=== PATIENT | female | born 1960 | race Caucasian/White ===

== ENCOUNTER → 2021-02-08 10:40 | Outpatient (BNVA) | payer SELFPAY | PROVIDERS: Visit Provider Nurse Practitioner Family | DX: Z20.822 Contact with and (suspected) exposure to COVID-19 (principal); J06.9 Acute upper respiratory infection, unspecified | CPT/HCPCS: 87635 ==

== ENCOUNTER 2021-02-10 10:29 | Outpatient (CLI) | payer SELFPAY ==
[2021-02-10 11:41] VITALS: BP 133/79; PULSE 81; RESP 18; TEMP 36.8; O2SAT 94
[2021-02-10 12:39] VITALS: BP 144/77; PULSE 82; RESP 16; TEMP 36.7; O2SAT 98
== END 2021-02-10 13:06 | disposition home or self-care (01) ==
PROVIDERS: Visit Provider Nurse Practitioner Family
DX: U07.1 COVID-19 (principal)
CPT/HCPCS: 96365

== ENCOUNTER 2021-02-12 10:47 | Emergency (ER) | payer SELFPAY ==
[2021-02-12 11:19] VITALS: BP 164/103; PULSE 89; RESP 18; TEMP 36.6; O2SAT 97; BMI 30.2
[2021-02-12 11:25] VITALS: BP 164/103; PULSE 89; RESP 18; O2SAT 98
--- NOTE | 2021-02-12 11:30 | XRR_ITS ---
PROCEDURE INFORMATION: Exam: XR Chest Exam date and time: 02/12/2021 11:30 AM Age: 60 years old Clinical indication: Shortness of breath TECHNIQUE: Imaging protocol: XR of the chest. Views: 1 view. COMPARISON: No relevant prior studies available. FINDINGS: Lungs: There is scarring and/or atelectasis at the right lung base. Pleural spaces: Unremarkable. No pleural effusion. No pneumothorax. Heart/Mediastinum: Cardiomegaly. Bones/joints: Unremarkable. XR/XR chest 1V portable [id number] IMPRESSION: Cardiomegaly.
--- NOTE | 2021-02-12 11:32 | ECG_ITS ---
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 Measurements Intervals [place] Rate: 75 P: 51 VT: 155 QRS: 16 QRSD: 90 T: 38 QT: 365 QTc: 409 Interpretive Statements SINUS RHYTHM No previous ECG available for comparison Electronically Signed On 02-13-2021 17:30:24 CDT by Poncho Wall M.D. [id number]
--- NOTE | 2021-02-12 11:34 | ED_ITS ---
HPI - COVID General: Chief Complaint: COVID symptoms Stated Complaint: COVID +/WORSENING SOB Time Seen by Provider: 02/12/21 10:50 Triage information: Has fever, cough or shortness of breath . Exposure to COVID + person last 14 days History of Present Illness: HPI Narrative: Ms. Rashid is a 60-year-old lady with a significant past medical history of known Covid positive on 02/08/21 with symptom onset of 02/04/2021 status post monoclonal antibody therapy who presents to the emergency department with a chief complaint of continued generalized illness. Symptom onset was gradual and started with back pain and decreased urine output. The patient had generalized malaise. Over the past few days she has had subjective fevers and chills and occasional nonproductive cough with shortness of breath. The shortness of breath is not positional and not associated with exertion. There is no associated chest pain. The patient rates the intensity of their symptoms as moderate to severe and describe the character as aching for pain. Back pain is midthoracic without associated trauma. Overall the course of symptoms has been persistent. The patient not had similar episodes in the past. The patient has tried Tylenol and ibuprofen at home which has provided minimal transient relief. There are no other specific exacerbating or alleviating factors reported. COVID Results: 2 Nasal/Oral Coronavirus 2019 PCR Detected H 02/08/21 10:40 02/08/21 Review of Systems Narrative: CONSTITUTIONAL: Subjective fevers and chills, malaise as noted in HPI EYES - denies pain, denies loss of vision EARS - denies ear issues. NOSE - denies congestion or rhinorrhea. CARDIOVASCULAR - denies chest pain and palpitations RESPIRATORY -mild shortness of breath and nonproductive cough as noted in HPI GASTROINTESTINAL - denies abdominal pain, no nausea vomiting, no changes in bowel habits GENITOURINARY - decrease urine output, urgency without output at times. MUSCULOSKELETAL- back pain as noted in HPI SKIN - denies rashes or new changed skin lesions NEUROLOGIC - denies focal weakness or sensory changes HEMATOLOGIC/LYMPHATIC - denies easy bruising or lymphadenopathy. PFS ED PFSH: Surgical History H/O: hysterectomy Family History Denies family history of Clotting disorder Bleeding disorder Family history of premature coronary artery disease Social History Smoking and tobacco status: current every day smoker Physical Exam Narrative: EXAM NARRATIVE: GENERAL/CONSTITUTIONAL - mildly ill appearing. No acute distress. Eyes - PERRL, no conjunctival injection ENMT - Atraumatic external nose and ears. Moist mucous membranes NECK - supple. trachea midline CARDIOVASCULAR - regular rate and rhythm. RESPIRATORY - mildly coarse breath sounds at the bases. No retractions or acce ssory muscle use. ABDOMEN/GI - Nontender/Nondistended. No tenderness to percussion or evidence of peritonitis. No CVA tenderness MSK - Extremities without obvious deformity or tenderness to palpation . Back pain not reproducible on physical exam. SKIN - Warm, Dry NEURO - alert and appropriately oriented. strength and sensation intact. Moves all extremities equally. PSYCH - Appropriate mood and affect Course ED course: - Patient was seen and evaluated by me at bedside - Patient placed on cardiac monitors, IV access obtained - Initial evaluation notable for mildly ill appearance, no acute distress. There are coarse breath sounds throughout. Patient is not requiring oxygen. - Labs and imaging obtained and reviewed -Symptomatic treatments ordered - Labs notable for no leukocytosis, normal lactate, normal procalcitonin. No evidence of renal dysfunction. There is evidence of urinary tract infection. - Imaging notable for no lobar consolidation - Upon serial reexamination after treatment the patient was improved with symptomatic care - Based on patient history, evaluation, labs, and imaging as interpreted the most likely cause of the patient's condition is multifactorial including COVID- 19, dehydration, and urinary tract infection - The results of ED evaluation were discussed with the patient including prescriptions and/or symptomatic cares including appropriate and responsible use, followup plan, and return precautions. The patient verbalized understanding and felt safe for discharge. - Patient discharged in satisfactory condition. Vital Signs: Vital signs: Vital Signs Temperature 97.9 F 02/12/21 11:19 Pulse Rate 80 02/12/21 13:11 Respiratory Rate 18 02/12/21 13:11 Blood Pressure 131/89 02/12/21 13:11 Pulse Oximetry 98 02/12/21 13:11 MDM - COVID Medical Records: Attestation: I reviewed the patient's medical records. Lab Data: Attestation: I reviewed the patient's lab results. Labs: Lab Results 02/12/21 02/12/21 02/12/21 Range/Units 12:30 12:30 12:30 WBC 4.9 (4.0-10.0) 10^3/ uL RBC 5.33 H (4.1-5.3) 10^6/u L Hgb 16.0 H (11.5-15.3) g/dL Hct 48.0 H (37.0-47.0) % MCV 90.1 (81-99) fL MCH 30.0 (28.0-34.0) pg MCHC 33.3 (30.0-36.0) g/dL RDW 12.9 (12.1-15.1) % Plt Count 211 (130-400) 10^3/c mm MPV 10.9 H (7.4-10.4) fL Neut % (Auto) 62.0 % Lymph % (Auto) 27.7 % [place] % (Auto) 8.7 % Eos % (Auto) 0.6 % Baso % (Auto) 0.4 % Neut # (Auto) 3.06 (1.8-7.7) 10^3/u L Lymph # (Auto) 1.4 (0.8-4.8) 10^3/u L [place] # (Auto) 0.4 (0.2-0.9) 10^3/u L Eos # (Auto) 0.0 (0.0-0.8) 10^3/u L Baso # (Auto) 0.0 (0.0-0.1) 10^3/u L Nucleated RBC % (a uto) 0 % Nucleated RBCs # 0.0 /100WBC Sodium 139 (136-145) mmol/L Potassium 3.8 (3.5-5.1) mmol/L Chloride 104 (98-107) mmol/L Carbon Dioxide 21 L (22-29) mmol/L Anion Gap 17.8 (5-19) BUN 7 L (8-23) mg/dL Creatinine 0.4 L (0.5-0.9) mg/dL GFR Calculation 161.7 H (90-130) mL/min Glucose 82 (65-115) mg/dL Calculated Osmolal ity 285 (285-295) mOsm/k g Calcium 8.7 (8.5-10.5) mg/dL Troponin T Baselin e 6 (0-10) ng/L Lipase 26 (13-60) U/L Procalcitonin 0.02 (0-0.5) ng/mL Urine Color (Yellow) Urine Appearance (CLEAR) Urine pH (5-7) Ur Specific Gravit y (1.005-1.030) Urine Protein (Negative) Urine Glucose (UA) (Normal) Urine Ketones (Negative) Urine Blood (Negative) Urine Nitrate (Negative) Urine Bilirubin (Negative) Urine Urobilinogen (Negative) mg/dL Ur Leukocyte Candi ase (Negative) Urine RBC (0-2) /hpf Urine WBC (0-5) /hpf Ur Squamous Epith Cells (0-5) /hpf Amorphous Sediment Urine Bacteria (NONE) /hpf 02/12/21 Range/Units 13:15 WBC (4.0-10.0) 10^3/ uL RBC (4.1-5.3) 10^6/u L Hgb (11.5-15.3) g/dL Hct (37.0-47.0) % MCV (81-99) fL MCH (28.0-34.0) pg MCHC (30.0-36.0) g/dL RDW (12.1-15.1) % Plt Count (130-400) 10^3/c mm MPV (7.4-10.4) fL Neut % (Auto) % Lymph % (Auto) % [place] % (Auto) % Eos % (Auto) % Baso % (Auto) % Neut # (Auto) (1.8-7.7) 10^3/u L Lymph # (Auto) (0.8-4.8) 10^3/u L [place] # (Auto) (0.2-0.9) 10^3/u L Eos # (Auto) (0.0-0.8) 10^3/u L Baso # (Auto) (0.0-0.1) 10^3/u L Nucleated RBC % (a uto) % Nucleated RBCs # /100WBC Sodium (136-145) mmol/L Potassium (3.5-5.1) mmol/L Chloride (98-107) mmol/L Carbon Dioxide (22-29) mmol/L Anion Gap (5-19) BUN (8-23) mg/dL Creatinine (0.5-0.9) mg/dL GFR Calculation (90-130) mL/min Glucose (65-115) mg/dL Calculated Osmolal ity (285-295) mOsm/k g Calcium (8.5-10.5) mg/dL Troponin T Baselin e (0-10) ng/L Lipase (13-60) U/L Procalcitonin (0-0.5) ng/mL Urine Color Dark yellow (Yellow) Urine Appearance Hazy A (CLEAR) Urine pH 5 (5-7) Ur Specific Gravit y 1.010 (1.005-1.030) Urine Protein Neg (Negative) Urine Glucose (UA) Norm (Normal) Urine Ketones 1+ H (Negative) Urine Blood 2+ H (Negative) Urine Nitrate Negative (Negative) Urine Bilirubin 1+ H (Negative) Urine Urobilinogen 1 H (Negative) mg/dL Ur Leukocyte Candi ase 2+ H (Negative) Urine RBC 5-10 H (0-2) /hpf Urine WBC >100 H (0-5) /hpf Ur Squamous Epith Cells 0-4 H (0-5) /hpf Amorphous Sediment Not Reportable Urine Bacteria 2+ H (NONE) /hpf Imaging Data: CXR: Attestation: I personally reviewed and interpreted this imaging study as follows: My impression: No lobar consolidation Radiologist's impression: Cardiomegaly EKG Data: EKG 1: Attestation: I personally reviewed and interpreted this EKG as follows: EKG interpretation date: 02/12/21 EKG interpretation time: 12:46 Prior EKG tracings: not available for review Interpretation: Twelve-lead EKG shows a regular sinus rhythm at a rate of 75. ND interval 155, QRS duration 90, QTc 409. Normal axis. Interpretation: Sinus rhythm COVID Results: Nasal/Oral Coronavirus 2019 PCR Detected H 02/08/21 10:40 02/08/21 Discharge Plan Discharge Patient Disposition: Home Clinical Impression: COVID-19, UTI (urinary tract infection), Dehydration, Hematuria, Back pain Condition: Stable Prescriptions: New cephalexin 500 mg capsule 500 mg PO Q6H 10 Days Qty: 40 RF: 0 Discharge Orders: Discharge ED (Routine); Ordered 02/12/21 Ordered By: Bennie Mak Discharge Diet: Usual diet Discharge Activity: Resume usual activity Patient Instructions: Hematuria - Female, Viral Pneumonia (ED), Urinary Tract Infection in Women (ED), Back Pain (ED), Opioid Safety Activity Restrictions/Additional Instructions: Thank you for visiting the emergency department. You were seen and evaluated for continued COVID-19 symptoms as well as back pain with urinary symptoms. You were found to have a urinary tract infection which will be treated with antibiotics. Please follow-up with your primary care provider. Your chest x-ray did show cardiomegaly. Which may be due to chronic issues such as hypertension and requires further evaluation by your primary care provider. Please return to the emergency department for any symptoms that you are concerned about and feel needs emergency department evaluation. 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
[2021-02-12] MEDS: sodium chloride 0.9% 500 ML IV ×2 (11:47→13:19)
[2021-02-12] MEDS: acetaminophen 325 mg Tablet 1000 MG PO (11:48)
[2021-02-12 12:50] LABS: Basophils % 0.4 %; Eosinophils % 0.6 %; Lymphocytes # 1.4 10^3/uL (0.8-4.8); Lymphocytes % 27.7 %; Mean Corpuscular HGB Conc 33.3 g/dL (30.0-36.0); Mean Corpuscular Volume 90.1 fL (81-99); Mean Platelet Volume 10.9 fL (7.4-10.4); Monocytes # 0.4 10^3/uL (0.2-0.9); Monocytes % 8.7 %; Neutrophils # 3.06 10^3/uL (1.8-7.7); Nucleated Red Blood Cells % 0 %; Platelet Count 211 10^3/cmm (130-400); Red Blood Count 5.33 10^6/uL (4.1-5.3); Red Cell Distribution Width 12.9 % (12.1-15.1); White Blood Count 4.9 10^3/uL (4.0-10.0)
[2021-02-12 13:11] VITALS: BP 131/89; PULSE 80; RESP 18; O2SAT 98
[2021-02-12 13:17] LABS: Troponin(5th) Baseline 6 ng/L (0-10)
[2021-02-12 13:19] LABS: Anion Gap 17.8 (5-19); Blood Urea Nitrogen 7 mg/dL (8-23); Calcium 8.7 mg/dL (8.5-10.5); Carbon Dioxide 21 mmol/L (22-29); Chloride 104 mmol/L (98-107); Glomerular Filtration Rate 161.7 mL/min (90-130); Glucose 82 mg/dL (65-115); Lipase 26 U/L (13-60); Osmolality Calculated 285 mOsm/kg (285-295); Potassium 3.8 mmol/L (3.5-5.1); Sodium 139 mmol/L (136-145)
[2021-02-12 13:27] LABS: Procalcitonin 0.02 ng/mL (0-0.5)
[2021-02-12 13:58] LABS: Add Urine Microscopic? YES; Bilirubin Urine 1+ (Negative); Blood Urine 2+ (Negative); Glucose Urine UA Norm (Normal); Ketones Urine 1+ (Negative); Leukocyte Esterase Urine 2+ (Negative); Nitrate Urine Negative (Negative); Protein Urine Neg (Negative); Urine Appearance Hazy (CLEAR); Urine Color Dark Yellow (Yellow); Urobilinogen Urine 1 mg/dL (Negative); pH Urine 5 (5-7)
[2021-02-12 13:59] LABS: Add Urine Culture? Yes; Bacteria Urine 2+ /hpf; Squamous Epithelial Cell Urine 0-4 /hpf (0-5); WBC Urine >100 /hpf (0-5)
== END 2021-02-12 14:59 | disposition home or self-care (01) ==
PROVIDERS: Emergency Provider Emergency Medicine
DX: U07.1 COVID-19 (principal); N39.0 Urinary tract infection, site not specified; R31.9 Hematuria, unspecified; E86.0 Dehydration; M54.9 Dorsalgia, unspecified; F17.210 Nicotine dependence, cigarettes, uncomplicated
CPT/HCPCS: 71045; 80048; 81001; 83690; 84145; 84484; 85025; 87086; 93005; 96360; 96361; 99284; J7040

== ENCOUNTER 2021-05-23 14:33 | Emergency (ER) | payer SELFPAY ==
--- NOTE | 2021-05-23 14:40 | XR_ITS ---
WS: [id number] Exam: XR chest 1V portable [id number] Date/Time of Exam: 05/23/2021 2:40 PM Reason For Exam: chest pain Comparison 02/12/2021. Findings: The lungs are clear and fully expanded. Costophrenic angles are sharp. No infiltrates. Bronchovascula r relief appears normal. Cardiac silhouette is unremarkable. Bony elements are intact. XR/XR chest 1V portable [id number] IMPRESSION: Unremarkable chest radiograph.
--- NOTE | 2021-05-23 14:40 | ECG_ITS ---
[facility] Test Date: 2021-05-23 Pat Name: Marylou Rashid Department: Room: Gender: Female Club Former: : 1960 Requested By: Irma Romano Order Number: [id number] Jessie MD: Milli Salinas M.D. Measurements Intervals [place] Rate: 102 P: 63 ND: 157 QRS: 21 QRSD: 85 T: 64 QT: 307 QTc: 400 Interpretive Statements SINUS TACHYCARDIA ANTERIOR MYOCARDIAL INFARCTION , PROBABLY OLD [40+ ms Q WAVE AND/OR ST/T ABNORMALITY IN V3/V4] POSSIBLE INFERIOR MYOCARDIAL INFARCTION , PROBABLY OLD [30 ms Q WAVE IN II/aVF] INTERPRETATION BASED ON A DEFAULT AGE OF 40 YEARS Compared to ECG 02/12/2021 12:46:20 Myocardial infarct finding now present Sinus rhythm no longer present Electronically Signed On 05-23-2021 21:55:57 CONSTRUCTION DIRECTOR by Milli Salinas M.D. [id number] f
[2021-05-23 14:51] VITALS: BP 137/84; PULSE 99; RESP 18; TEMP 36.9; O2SAT 95; BMI 30.2
[2021-05-23 15:12] LABS: Basophils % 0.4 %; Eosinophils % 0.9 %; Hematocrit 44.9 % (37.0-47.0); Hemoglobin 15.4 g/dL (11.5-15.3); Lymphocytes # 0.9 10^3/uL (0.8-4.8); Lymphocytes % 19.1 %; Mean Corpuscular HGB Conc 34.3 g/dL (30.0-36.0); Mean Corpuscular Hemoglobin 30.6 pg (28.0-34.0); Mean Corpuscular Volume 89.3 fl (81-99); Monocytes # 0.4 10^3/uL (0.2-0.9); Monocytes % 8.3 %; Neutrophils # 3.25 10^3/uL (1.8-7.7); Neutrophils % 70.6 %; Nucleated Red Blood Cells % 0 %; Platelet Count 218 10^3/cmm (130-400); Red Blood Count 5.03 10^6/uL (4.1-5.3); Red Cell Distribution Width 13.4 % (12.1-15.1); White Blood Count 4.6 10^3/uL (4.0-10.0)
[2021-05-23 15:33] LABS: Troponin(5th) Baseline 6 ng/L (0-10)
[2021-05-23 15:39] LABS: Alanine Aminotransferase 14 U/L (0-33); Albumin Level 4.1 g/dL (3.5-5.2); Alkaline Phosphatase 119 IU/L (35-105); Anion Gap 18.9 (5-19); Aspartate Amino Transferase 14 U/L (0-32); Blood Urea Nitrogen 11 mg/dL (8-23); Calcium 9.1 mg/dL (8.5-10.5); Carbon Dioxide 18 mmol/L (22-29); Chloride 101 mmol/L (98-107); Globulin 2.6 g/dL (1.3-4.6); Glomerular Filtration Rate 161.7 mL/min (90-130); Glucose 94 mg/dL (65-115); Osmolality Calculated 277 mOsm/kg (285-295); Potassium 3.9 mmol/L (3.5-5.1); Sodium 134 mmol/L (136-145); Total Bilirubin 0.2 mg/dL (0.15-1.2); Total Protein 6.7 g/dL (6.6-8.7)
[2021-05-23 17:35] LABS: Troponin 5 2HR 6.56 ng/L (0-10); Troponin 5 2HR Delta 0.56 ABS# (0-10)
--- NOTE | 2021-07-06 14:11 | DCPLANNER ---
Patient had a follow up appointment scheduled with [facility] - patient did attend appointment.
== END 2021-05-23 17:26 | disposition left against medical advice (07) ==
PROVIDERS: Emergency Provider Physician Assistant
DX: Z53.21 Procedure and treatment not carried out due to patient leaving prior to being seen by health care provider (principal)
CPT/HCPCS: 71045; 80053; 84484; 85025; 93005

== ENCOUNTER 2021-05-24 14:55 | Emergency (ER) | payer SELFPAY ==
[2021-05-24 15:02] VITALS: BP 147/75; PULSE 90; RESP 16; TEMP 36.8; O2SAT 97; BMI 33.1
--- NOTE | 2021-05-24 15:05 | ECG_ITS ---
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 Measurements Intervals [place] Rate: 91 P: 62 DC: 184 QRS: 37 QRSD: 63 T: 62 QT: 311 QTc: 383 Interpretive Statements SINUS RHYTHM POSSIBLE LEFT ATRIAL ENLARGEMENT [-0.1mV P-WAVE IN V1/V2] LOW QRS VOLTAGE IN PRECORDIAL LEADS [QRS DEFLECTION < 1.0 mV IN CHEST LEADS] POSSIBLE ANTERIOR MYOCARDIAL INFARCTION , OF INDETERMINATE AGE [30 ms Q WAVE IN V3/V4, OR R < 0.2 mV IN V4] ST ELEVATION, CONSIDER INFERIOR INJURY [MARKED ST ELEVATION W/O NORMALLY INFLECTED T-WAVE IN II/aVF] ACUTE [place] Compared to ECG 05/23/2021 14:42:51 Low QRS voltage now present.ST (T wave) deviation now present.Sinus tachycardia no longer present Myocardial infarct finding still present Electronically Signed On 05-24-2021 22:45:08 SHARE DAIRY FARMER by Milli Salinas M.D. [id number] f
--- NOTE | 2021-05-24 15:05 | XR_ITS ---
WS: [id number] Exam: XR chest 1V portable [id number] Date/Time of Exam: 05/24/2021 3:38 PM Reason For Exam: chest pain Comparison 05/23/2021 Findings: The lungs are clear and fully expanded. Costophrenic angles are sharp. No infiltrates. Bronchovascula r relief appears normal. Cardiac silhouette is unremarkable. Bony elements are intact. XR/XR chest 1V portable [id number] IMPRESSION: Unremarkable chest radiograph.
--- NOTE | 2021-05-24 16:04 | ED_ITS ---
HPI - Chest Pain General: Chief Complaint: Chest Pain Stated Complaint: SENT OF BY DR ANNA FOR CP LAST NIGHT Time Seen by Provider: 05/24/21 15:39 Source: patient Mode of arrival: ambulatory Limitations: no limitations History of Present Illness: HPI narrative: 60-year-old female states been having chest pain has been constant nature since yesterday states the pain is in her epigastric region and chest that sharp in nature and radiates to her back states it has been constant nothing makes it worse or better states pain currently is a 5 out of 10. She denies any vomiting or diarrhea. She denies it being worse with food. Patient did been here yesterday but left AMA seen in clinic and sent here. Associated symptoms: Deny abdominal pain, dyspnea, fever(s), nausea or vomiting Review of Systems Const: Denies: fever(s), chills, body aches or change in appetite Eyes: Denies: blurry vision or eye discomfort ENMT: Denies: throat pain or dental pain Card: Reports: chest pain Resp: Denies: dyspnea GI: Denies: abdominal pain, nausea, vomiting or diarrhea : Denies: dysuria Musc: Denies: neck pain or back pain Skin/Breast: Denies: rash Neuro: Denies: headache(s) Psych: Denies: depression Lam/Lymph: Denies: easy bruising All/Imm: Denies: urticaria PFSH ED PFSH: Surgical History H/O: hysterectomy Family History Denies family history of Clotting disorder Bleeding disorder Family history of premature coronary artery disease Social History Smoking and tobacco status: current every day smoker Physical Exam Const: COMMON NORMALS: no acute distress, patient oriented x3 and healthy appearing HENMT: COMMON NORMALS: normocephalic and atraumatic HEAD & SCALP: normocephalic and atraumatic Eye: COMMON NORMALS: Equal, round and reactive pupils present and EOMs intact bilaterally PUPIL: Yes Equal, round and reactive pupils present Neck/C-Spine: COMMON NORMALS: full ROM and supple Chest: COMMONS NORMALS: normal inspection of the chest and normal palpation of entire chest wall Resp: COMMON NORMALS: normal respiratory effort, No retractions, No use of accessory muscles and clear to auscultation bilaterally AUSCULTATION: clear to auscultation bilaterally Cardio: COMMON NORMALS: regular rate, regular rhythm and No murmurs present (Cardio) RATE: regular rate RHYTHM: regular rhythm GI: COMMON NORMALS: Normal to inspection, nondistended, normoactive bowel sounds present, Soft to palpation, non-tender and no masses PALPATION: Yes Soft to palpation Extremity: COMMON NORMALS: normal to inspection and full ROM Neuro: COMMON NORMALS: patient oriented x3, moves all extremities and no focal motor deficits Psych: COMMON NORMALS: mental status grossly normal, Normal thought process present and cooperative THOUGHT PROCESS: Normal thought process present Skin: COMMON NORMALS: no rashes or lesions noted and no wounds GENERAL SKIN EXAM: no rashes or lesions noted Course Vital Signs: Vital signs: Vital Signs Temperature 98.7 F 05/24/21 16:44 Pulse Rate 78 05/24/21 18:00 Respiratory Rate 18 05/24/21 18:00 Blood Pressure 128/59 05/24/21 16:44 Pulse Oximetry 92 05/24/21 18:00 MDM - Chest Pain MDM Narrative: Medical decision making narrative: Patient presents here with chest pains atypical in nature she is actually tender on exam could be muscular. She does have a history of reflux we will place her on Protonix CT of her chest shows no acute abnormalities troponins here are negative she is to follow-up with Dr. Anna and return if worsening she understands agrees to plan. Lab Data: Labs: Lab Results 05/24/21 05/24/21 05/24/21 16:30 16:30 16:30 WBC 4.7 10^3/uL 10^3/ uL (4.0-10.0) RBC 5.23 10^6/uL 10^6 /uL (4.1-5.3) Hgb 16.0 g/dL H g/dL (11.5-15.3) Hct 47.1 % H % (37.0-47.0) MCV 90.1 fl fl (81-99) MCH 30.6 pg pg (28.0-34.0) MCHC 34.0 g/dL g/dL (30.0-36.0) RDW 13.6 % % (12.1-15.1) Plt Count 220 10^3/cmm 10^3 /cmm (130-400) MPV 11.4 fL H fL (7.4-10.4) Neut % (Auto) 55.3 % % Lymph % (Auto) 30.1 % % [place] % (Auto) 11.9 % % Eos % (Auto) 1.7 % % Baso % (Auto) 0.4 % % Neut # (Auto) 2.61 10^3/uL 10^3 /uL (1.8-7.7) Lymph # (Auto) 1.4 10^3/uL 10^3/ uL (0.8-4.8) [place] # (Auto) 0.6 10^3/uL 10^3/ uL (0.2-0.9) Eos # (Auto) 0.1 10^3/uL 10^3/ uL (0.0-0.8) Baso # (Auto) 0.0 10^3/uL 10^3/ uL (0.0-0.1) Nucleated RBC % (a uto) 0 % % Nucleated RBCs # 0.0 /100WBC /100W BC D-Dimer Sodium 136 mmol/L mmol/L (136-145) Potassium 3.7 mmol/L mmol/L (3.5-5.1) Chloride 102 mmol/L mmol/L (98-107) Carbon Dioxide 19 mmol/L L mmol/ L (22-29) Anion Gap 18.7 (5-19) BUN 16 mg/dL mg/dL (8-23) Creatinine 0.6 mg/dL mg/dL (0.5-0.9) GFR Calculation 101.3 mL/min mL/m in (90-130) Glucose 78 mg/dL mg/dL (65-115) Calculated Osmolal ity 282 mOsm/kg L mOs m/kg (285-295) Calcium 8.6 mg/dL mg/dL (8.5-10.5) Total Bilirubin 0.3 mg/dL mg/dL (0.15-1.2) AST 13 U/L U/L (0-32) ALT 15 U/L U/L (0-33) Alkaline Phosphata se 102 IU/L IU/L (35-105) Troponin T Baselin e 8 ng/L ng/L (0-10) Troponin T [address] [place] Delta Troponin T Total Protein 6.5 g/dL L g/dL (6.6-8.7) Albumin 3.9 g/dL g/dL (3.5-5.2) Globulin 2.6 g/dL g/dL (1.3-4.6) 05/24/21 05/24/21 16:30 17:26 WBC RBC Hgb Hct MCV MCH MCHC RDW Plt Count MPV Neut % (Auto) Lymph % (Auto) [place] % (Auto) Eos % (Auto) Baso % (Auto) Neut # (Auto) Lymph # (Auto) [place] # (Auto) Eos # (Auto) Baso # (Auto) Nucleated RBC % (a uto) Nucleated RBCs # D-Dimer 0.78 ug/mIFEU H u g/mIFEU (0-0.59) Sodium Potassium Chloride Carbon Dioxide Anion Gap BUN Creatinine GFR Calculation Glucose Calculated Osmolal ity Calcium Total Bilirubin AST ALT Alkaline Phosphata se Troponin T Baselin e Troponin T 120 Min [place] 7.59 ng/L ng/L (0-10) Delta Troponin T -0.41 ABS# L ABS# (0-10) Total Protein Albumin Globulin Imaging Data^: CXR: Attestation: I personally reviewed and interpreted this imaging study as follows: My impression: no acute abnormality CT Chest: Attestation: I personally reviewed and interpreted this imaging study as follows: Radiologist's impression: [address] [address] [address] Scan Report Signed Patient: Marylou Rashid Unit #: [id number] : 1960 Age/Sex: 60 / F ADM Date: 05/24/21 Loc: ER Room/Bed: Attending Dr: Ordering Provider/Ordering MD: Dyan Almodovar MD Date of Service: 05/24/21 Procedure(s): CT angio chest PE protcl [id number] Accession Number(s): [id number] Report Number: [id number] PROCEDURE INFORMATION: Exam: CTA Chest With Contrast Exam date and time: 05/24/2021 5:22 PM Age: 60 years old Clinical indication: Pain; Shortness of breath; Left-sided; Additional info: SOB TECHNIQUE: Imaging protocol: Computed tomographic angiography of the chest with contrast. 3D rendering (Not supervised by radiologist): MIP and/or 3D reconstructed images were created by the technologist. Radiation optimization: All CT scans at this facility use at least one of these dose optimization techniques: automated exposure control; mA and/or kV adjustment per patient size (includes targeted exams where dose is matched to clinical indication); or iterative reconstruction. Contrast material: OMNI 350; Contrast volume: 66 ml; Contrast route: INTRAVENOUS (IV); COMPARISON: CR XR chest 1V portable [id number] 05/24/2021 3:49 PM RADIATION DOSE METRICS: Total DLP (mGy-cm): 545.4 FINDINGS: Pulmonary arteries: Normal. No pulmonary emboli. Aorta: Unremarkable. No aortic aneurysm. No aortic dissection. Thyroid: 1.9 cm left thyroid nodule. Ultrasound follow-up is recommended. Lungs: Mild dependent atelectasis. The lungs are otherwise clear. Pleural spaces: Unremarkable. No pneumothorax. No pleural effusion. Heart: Unremarkable. No cardiomegaly. No pericardial effusion. Lymph nodes: Prominent mediastinal and hilar lymph nodes are most likely reactive. Bones/joints: Unremarkable. No acute fracture. Soft tissues: Unremarkable. CT/CT angio chest PE protcl [id number] IMPRESSION: 1. No evidence for pulmonary embolus or other acute finding. 2. 1.9 cm left thyroid nodule. Ultrasound follow-up is recommended. COMMENTS: Consistent with the [place] [employer]'s Incidental Findings Committee white paper (J Am Sourav Radiol 2015): In patients aged 35 years and older with an incidental thyroid nodule equal to or greater than 1.[address], MRI or extrathyroidal US, further evaluation with dedicated thyroid US is recommended for patients with normal life expectancy and without comorbidities. For smaller nodules without suspicious features, no further evaluation or follow up is recommended. Radiation Dose CTDIVOL = (mGy): DLP = 545.4 (mGy-cm) Dictated By: Beto Abad Signed By: Beto Abad Signed Date/Time: 05/24/211805 DD/ 21 EKG Data^: EKG 1: Attestation: I personally reviewed and interpreted this EKG as follows: EKG interpretation date: 05/24/21 EKG interpretation time: 15:15 Interpretation: nsr hr [address] or t wave abnormalities qrs 63 qtc 359 EKG 2: Attestation: I personally reviewed and interpreted this EKG as follows: EKG interpretation date: 05/24/21 EKG interpretation time: 16:25 Interpretation: nsr hr [address] or t wave abnormalities qrs 85 qtc 381 Discharge Plan Discharge Patient Disposition: Home Clinical Impression: Chest pain Qualifiers: Chest pain type: unspecified Qualified Code(s): R07.9 - Chest pain, unspecified Condition: Stable Prescriptions: New Protonix 40 mg tablet,delayed release (DR/EC) 40 mg PO DAILY Qty: 60 RF: 0 No Action Tylenol Ex Str Rapid Release 500 mg Tablet 1,000 mg PO Q4H PRN (Reason: Pain) RF: 0 ibuprofen 200 mg Tablet 600 mg PO Q4H PRN (Reason: Pain) RF: 0 Discharge Orders: Discharge ED (Routine); Ordered 05/24/21 Ordered By: Dyan Almodovar Referrals: Milli Anna MD [Physician] - Sabina Parham MD [Primary Care Provider] - Discharge Diet: Advance as tolerated Discharge Activity: Resume usual activity Patient Instructions: Chest Pain (ED) Coding Level of Care Code ED Lead Ramp Agent for Chg Fwd Exam Comprehensive
[2021-05-24 16:44] VITALS: BP 128/59; PULSE 87; RESP 25; TEMP 37.1; O2SAT 95
[2021-05-24] MEDS: ondansetron 2 mg/ML SDV 2 mL 4 MG IVP (16:49)
[2021-05-24 16:51] VITALS: RESP 15; O2SAT 96
[2021-05-24] MEDS: morphine 4 mg/mL SDV 1 mL IVP (16:51)
[2021-05-24 17:04] LABS: Basophils % 0.4 %; Eosinophils # 0.1 10^3/uL (0.0-0.8); Eosinophils % 1.7 %; Hematocrit 47.1 % (37.0-47.0); Lymphocytes # 1.4 10^3/uL (0.8-4.8); Lymphocytes % 30.1 %; Mean Corpuscular Hemoglobin 30.6 pg (28.0-34.0); Mean Corpuscular Volume 90.1 fl (81-99); Mean Platelet Volume 11.4 fL (7.4-10.4); Monocytes # 0.6 10^3/uL (0.2-0.9); Monocytes % 11.9 %; Neutrophils # 2.61 10^3/uL (1.8-7.7); Neutrophils % 55.3 %; Nucleated Red Blood Cells % 0 %; Platelet Count 220 10^3/cmm (130-400); Red Blood Count 5.23 10^6/uL (4.1-5.3); Red Cell Distribution Width 13.6 % (12.1-15.1); White Blood Count 4.7 10^3/uL (4.0-10.0)
[2021-05-24 17:21] LABS: D Dimer 0.78 ug/mIFEU (0-0.59)
--- NOTE | 2021-05-24 17:22 | CTR_ITS ---
PROCEDURE INFORMATION: Exam: CTA Chest With Contrast Exam date and time: 05/24/2021 5:22 PM Age: 60 years old Clinical indication: Pain; Shortness of breath; Left-sided; Additional info: SOB TECHNIQUE: Imaging protocol: Computed tomographic angiography of the chest with contrast. 3D rendering (Not supervised by radiologist): MIP and/or 3D reconstructed images were created by the technologist. Radiation optimization: All CT scans at this facility use at least one of these dose optimization techniques: automated exposure control; mA and/or kV adjustment per patient size (includes targeted exams where dose is matched to clinical indication); or iterative reconstruction. Contrast material: OMNI 350; Contrast volume: 66 ml; Contrast route: INTRAVENOUS (IV); COMPARISON: CR XR chest 1V portable [id number] 05/24/2021 3:49 PM RADIATION DOSE METRICS: Total DLP (mGy-cm): 545.4 FINDINGS: Pulmonary arteries: Normal. No pulmonary emboli. Aorta: Unremarkable. No aortic aneurysm. No aortic dissection. Thyroid: 1.9 cm left thyroid nodule. Ultrasound follow-up is recommended. Lungs: Mild dependent atelectasis. The lungs are otherwise clear. Pleural spaces: Unremarkable. No pneumothorax. No pleural effusion. Heart: Unremarkable. No cardiomegaly. No pericardial effusion. Lymph nodes: Prominent mediastinal and hilar lymph nodes are most likely reactive. Bones/joints: Unremarkable. No acute fracture. Soft tissues: Unremarkable. CT/CT angio chest PE protcl [id number] IMPRESSION: 1. No evidence for pulmonary embolus or other acute finding. 2. 1.9 cm left thyroid nodule. Ultrasound follow-up is recommended. COMMENTS: Consistent with the [employer]'s Incidental Findings Committee white paper (J Am Sourav Radiol 2015): In patients aged 35 years and older with an incidental thyroid nodule equal to or greater than 1.[address], MRI or extrathyroidal US, further evaluation with dedicated thyroid US is recommended for patients with normal life expectancy and without comorbidities. For smaller nodules without suspicious features, no further evaluation or follow up is recommended. Radiation Dose CTDIVOL = (mGy): DLP = 545.4 (mGy-cm)
[2021-05-24] MEDS: iohexol 350 mg/mL 100 mL Btl IV (17:42)
[2021-05-24 18:00] VITALS: PULSE 78; RESP 18; O2SAT 92
[2021-05-24 18:14] LABS: Alanine Aminotransferase 15 U/L (0-33); Albumin Level 3.9 g/dL (3.5-5.2); Alkaline Phosphatase 102 IU/L (35-105); Anion Gap 18.7 (5-19); Aspartate Amino Transferase 13 U/L (0-32); Blood Urea Nitrogen 16 mg/dL (8-23); Calcium 8.6 mg/dL (8.5-10.5); Carbon Dioxide 19 mmol/L (22-29); Chloride 102 mmol/L (98-107); Globulin 2.6 g/dL (1.3-4.6); Glomerular Filtration Rate 101.3 mL/min (90-130); Glucose 78 mg/dL (65-115); Osmolality Calculated 282 mOsm/kg (285-295); Potassium 3.7 mmol/L (3.5-5.1); Sodium 136 mmol/L (136-145); Total Bilirubin 0.3 mg/dL (0.15-1.2); Total Protein 6.5 g/dL (6.6-8.7)
[2021-05-24 18:15] LABS: Troponin(5th) Baseline 8 ng/L (0-10)
[2021-05-24 18:16] LABS: Troponin 5 2HR 7.59 ng/L (0-10)
[2021-05-24 18:20] LABS: Troponin 5 2HR Delta -0.41 ABS# (0-10)
--- NOTE | 2021-05-24 21:05 | ECG_ITS ---
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 Measurements Intervals [place] Rate: 90 P: 59 [place]: 176 QRS: 13 QRSD: 85 T: 61 QT: 333 QTc: 409 Interpretive Statements SINUS RHYTHM POSSIBLE LEFT ATRIAL ENLARGEMENT [-0.1mV P-WAVE IN V1/V2] POSSIBLE ANTERIOR MYOCARDIAL INFARCTION , PROBABLY OLD [30 ms Q WAVE IN V3/V4, OR R < 0.2 mV IN V4] Compared to ECG 05/23/2021 14:42:51 Sinus tachycardia no longer present Myocardial infarct finding still present Electronically Signed On 05-24-2021 22:53:34 BODY SHOP MANAGER by Milli Salinas M.D. [email or web address]8[facility].[employer]/store/[id number]
--- NOTE | 2021-05-25 11:12 | DCPLANNER ---
cycle manager had message to schedule a follow up appointment for patient with [facility]. cycle manager called [facility], spoke with Becky, gave clinic patients information. Patient had a follow up appointment scheduled for , June 15, 2021 at 10:[address] Salinas. cycle manager called patient and gave patient the appointment information. Patient stated that she does not have insurance, behavioral health case manager will mail patient the appointment information.
== END 2021-05-24 18:47 | disposition home or self-care (01) ==
PROVIDERS: Physician Assistant; Emergency Provider Emergency Medicine; PCP Family Medicine
DX: R07.9 Chest pain, unspecified (principal); F17.210 Nicotine dependence, cigarettes, uncomplicated
CPT/HCPCS: 71045; 71275; 80053; 83880; 84484; 85025; 85378; 93005; 96374; 96375; 99284; J2270; J2405; Q9967

== ENCOUNTER → 2021-10-02 14:16 | Outpatient (BNVA) | payer OTHER, SELFPAY | PROVIDERS: PCP Family Medicine; Visit Provider Nurse Practitioner Family | DX: R05.9 Cough, unspecified (principal); R06.02 Shortness of breath | CPT/HCPCS: 71046 ==

== ENCOUNTER 2021-10-25 08:21 | Outpatient (CLI) | payer OTHER, SELFPAY ==
[2021-10-25 09:42] LABS: Basophils # 0.1 10^3/uL (0.0-0.1); Eosinophils # 0.3 10^3/uL (0.0-0.8); Eosinophils % 4.6 %; Hematocrit 45.5 % (37.0-47.0); Hemoglobin 14.9 g/dL (11.5-15.3); Lymphocytes # 1.9 10^3/uL (0.8-4.8); Lymphocytes % 31.7 %; Mean Corpuscular HGB Conc 32.7 g/dL (30.0-36.0); Mean Corpuscular Hemoglobin 30.6 pg (28.0-34.0); Mean Corpuscular Volume 93.4 fl (81-99); Mean Platelet Volume 11.3 fL (7.4-10.4); Monocytes # 0.3 10^3/uL (0.2-0.9); Monocytes % 5.8 %; Neutrophils % 56.6 %; Nucleated Red Blood Cells % 0 %; Platelet Count 250 10^3/cmm (130-400); Red Blood Count 4.87 10^6/uL (4.1-5.3); Red Cell Distribution Width 13.4 % (12.1-15.1); White Blood Count 5.8 10^3/uL (4.0-10.0)
[2021-10-25 10:04] LABS: Alanine Aminotransferase 12 U/L (0-33); Albumin Level 4.4 g/dL (3.5-5.2); Alkaline Phosphatase 114 IU/L (35-105); Blood Urea Nitrogen 14 mg/dL (8-23); Calcium 9.8 mg/dL (8.5-10.5); Carbon Dioxide 24 mmol/L (22-29); Chloride 104 mmol/L (98-107); Chol HDL Ratio 4.17 mg/dL (0.0-4.40); Cholesterol 246 mg/dL (0-200); Globulin 3.2 g/dL (1.3-4.6); Glomerular Filtration Rate 161.2 mL/min (90-130); Glucose 86 mg/dL (65-115); HDL Cholesterol 59 mg/dL (60-100); LDL Cholesterol Calculated 162 mg/dL (50-129); LDL HDL Ratio 2.75 RATIO (0.00-3.22); Osmolality Calculated 290 mOsm/kg (285-295); Sodium 140 mmol/L (136-145); Total Bilirubin 0.4 mg/dL (0.15-1.2); Total Protein 7.6 g/dL (6.6-8.7); Triglycerides 127 mg/dL (0-150)
[2021-10-25 10:06] LABS: Anion Gap 16.5 (5-19); Aspartate Amino Transferase 14 U/L (0-32); Potassium 4.5 mmol/L (3.5-5.1)
== END 2021-10-25 08:22 | disposition home or self-care (01) ==
LOC: LAB 08:23
PROVIDERS: PCP Family Medicine; Visit Provider Nurse Practitioner Family
DX: E87.1 Hypo-osmolality and hyponatremia (principal); I10 Essential (primary) hypertension
CPT/HCPCS: 80053; 80061; 85025

== ENCOUNTER → 2022-07-18 16:18 | Outpatient (BNVA) | payer MEDICAID, SELFPAY | PROVIDERS: PCP Family Medicine; Visit Provider Nurse Practitioner Family | DX: J40 Bronchitis, not specified as acute or chronic (principal); R05.9 Cough, unspecified | CPT/HCPCS: 71046 ==

== ENCOUNTER 2022-12-06 07:09 | Outpatient (CLI) | payer MEDICAID, SELFPAY ==
--- NOTE | 2022-12-06 07:15 | NMCV_ITS ---
NM syd perf SPECT r/s* [id number] Marylou Rashid Age: 62 Gender: F : 1960 Exam Date: 12/06/2022 08:08 Ordering Phys: Milli Salinas MD ([email or web address]) Technologist: AIDA Cason Exam Location: [facility] Indications: CORONARY ANGIOPLASTY STATUS, CHEST PAIN STRESS TEST Please see separate stress test report in [facility] for full findings IMAGE PROTOCOL Rest/Stress 1 Exercise Day Radiopharmaceutical Dose (mCi) Administration Site Administered by Rest: Tc-99m 10.6 IV AIDA Allen Sestamijh Stress:Tc-99m 32.4 IV AIDA Allen Sestamijh Rest: 06-Dec-2022 60 Discovery 630 Stress: 06-Dec-2022 30 Discovery 630 Radiopharmaceutical was injected at 88 % maximum heart rate. Images obtained in supine and prone position. SPECT RESULTS Technical Quality: Excellent Raw Data Analysis: Normal Image Corrections: No attenuation or motion correction applied Summed Stress Score: 0 Summed Rest Score: 1 Summed Difference Score: 0 PERFUSION FINDINGS SPECT images demonstrate homogeneous tracer distribution throughout the myocardium. FUNCTIONAL RESULTS (calculated via Gated SPECT) Stress Image LV EF (%): 79 Stress EDV (mL):77 TID: 0.89 Stress ESV (mL):16 FUNCTIONAL FINDINGS: There is normal left ventricular systolic function. IMPRESSIONS 1. Normal myocardial perfusion imaging with no evidence of ischemia 2. LV systolic function is normal. Poncho Wall MD (Electronically Signed) Final Date: 15 December 2022 09:12 S
--- NOTE | 2022-12-06 07:15 | ECG_ITS ---
[facility] Test Date: 2022-12-06 Pat Name: Marylou Rashid Department: Room: Gender: Female Gutter Installer: Emili HoldenAylin : 1960 Requested By: Milli Salinas Order Number: [id number] Jessie MD: Jocy Muñiz M.D. Interpretive Statements NAME OF STUDY: EXERCISE SESTAMIBI STRESS TEST INDICATION: Fatigue/SOB Baseline blood pressure of 155/92 mm Hg, heart rate of 76 beats per minute and oxygen saturation 95%. EKG showed sinus rhythm, normal axis with possible old anterior myocardial infarction. The patient exercised for 5 minutes 19 seconds on a standard David protocol. Patient attained a maximum heart rate of 146 beats per minute(93% of the maximum predicted heart rate) with a blood pressure at the peak exercise of 187/92 mm Hg and saturation of 96%. The EKG at the peak exercise revealed sinus tachycardia with no significant ST-T wave changes. Patient did not have any chest pain or any significant arrhythmis with the exercise During the recovery phase, there were no new changes. Blood pressure at the end of the recovery phase was 45/79 mm Hg with a heart rate of 99 beats per minute and saturation of 96%. CONCLUSION: 1. Normal EKG response to treadmill exercise. 2. No exercise-induced chest pain or cardiac arrhythmia 3. Fair exercise tolerance, attained a maximum of 7 METs. 4. Baseline hypertension with normal response to exercise. 5. Perfusion scan will be documented separately. Electronically Signed On 12-19-2022 17:17:35 CDT by Jocy Muñiz M.D. [email or web address] PharmaceuticalsQUICK SANDS SOLUTIONSharbor beach community hospital.[employer]/store/[id number]
[2022-12-06 07:16] VITALS: BMI 35.7
[2022-12-06 08:56] VITALS: BP 145/79; PULSE 99
== END 2022-12-06 07:10 | disposition home or self-care (01) ==
LOC: CDL 07:09
PROVIDERS: PCP Family Medicine; Visit Provider Internal Medicine Cardiovascular Disease
DX: R06.02 Shortness of breath (principal); R53.83 Other fatigue
CPT/HCPCS: 36415; 78452; 93017; A9500

== ENCOUNTER → 2023-05-23 13:17 | Outpatient (BNVA) | payer MEDICAID, SELFPAY | PROVIDERS: PCP Family Medicine; Visit Provider Internal Medicine Cardiovascular Disease | DX: R07.9 Chest pain, unspecified (principal); K21.9 Gastro-esophageal reflux disease without esophagitis; E78.5 Hyperlipidemia, unspecified; I10 Essential (primary) hypertension; J06.9 Acute upper respiratory infection, unspecified; F17.210 Nicotine dependence, cigarettes, uncomplicated | CPT/HCPCS: 99214 ==

== ENCOUNTER → 2023-11-27 13:11 | Outpatient (BNVA) | payer MEDICAID, SELFPAY | PROVIDERS: PCP Family Medicine; Visit Provider Internal Medicine Cardiovascular Disease | DX: J06.9 Acute upper respiratory infection, unspecified (principal); I10 Essential (primary) hypertension; E78.5 Hyperlipidemia, unspecified; F17.210 Nicotine dependence, cigarettes, uncomplicated; Z87.898 Personal history of other specified conditions | CPT/HCPCS: 99214 ==

== ENCOUNTER → 2024-06-02 15:21 | Outpatient (BNVA) | payer MEDICARE, SELFPAY | PROVIDERS: PCP Family Medicine; Visit Provider Internal Medicine Cardiovascular Disease | DX: R07.9 Chest pain, unspecified (principal); I10 Essential (primary) hypertension; E78.5 Hyperlipidemia, unspecified; R94.31 Abnormal electrocardiogram [ECG] [EKG]; F17.210 Nicotine dependence, cigarettes, uncomplicated | CPT/HCPCS: 99214 ==

== ENCOUNTER 2024-07-23 14:44 | Outpatient (CLI) | payer MEDICARE, SELFPAY ==
--- NOTE | 2024-07-23 14:50 | MM_ITS ---
WS: [id number] BILATERAL SCREENING DIGITAL TOMOSYNTHESIS MAMMOGRAM WITH CAD HISTORY: SCREENING COMPARISON: None available. Bilateral CC and MLO views with tomosynthesis and synthetic mammography submitted. Computer aided det ection analyzed. Breast composition: There are scattered areas of fibroglandular density. No suspicious masses, microc alcifications or architectural distortion. Benign calcification anterior LEFT breast. MM/MM scr BI tomosynthesis [id number] IMPRESSION: BI-RADS: 2 - Benign. FOLLOW UP: 1 Year Follow-up
--- NOTE | 2024-07-23 15:14 | XR_ITS ---
WS: [id number] DEXA (DUAL ENERGY X-RAY ABSORPTIOMETRY) Bone mineral density was performed using a [employer] machine. HISTORY: postmenopausal COMPARISON: None available. Lumbar spine BMD (L1-L4): 0.918 g/cm2 T score: -2.2 Z score: -1.0 Total hip BMD: Left: 0.773 g/cm2. T score: -1.9 Z score: -1.0 Right: 0.850 g/cm2. T score: -1.3 Z score: -0.3 10 year probability of a major osteoporotic fracture is 12.9%. XR/XR DEXA axial skeleton* [id number] IMPRESSION: OSTEOPENIA based upon the WHO classification for females.
== END 2024-07-23 14:45 | disposition home or self-care (01) ==
LOC: RAD 14:46
PROVIDERS: PCP Nurse Practitioner Family; Visit Provider Nurse Practitioner Family
DX: Z12.31 Encounter for screening mammogram for malignant neoplasm of breast (principal); Z78.0 Asymptomatic menopausal state; R92.323 Mammographic fibroglandular density, bilateral breasts; R92.1 Mammographic calcification found on diagnostic imaging of breast; M85.80 Other specified disorders of bone density and structure, unspecified site
CPT/HCPCS: 77063; 77067; 77080